=== PATIENT | male | born 1930 | race Caucasian/White ===

== ENCOUNTER 2018-02-08 06:10 | Inpatient (IN) ==
[2018-02-08] MEDS ORDERED: Iohexol 350 MG/ML 100 ML Vial (for Cath Lab) IVCONTRAST ONE (06:11)
[2018-02-08] MEDS ORDERED: Iohexol 350 MG/ML 50 ML Vial (for Cath Lab) IVCONTRAST ONE (06:11)
[2018-02-08] MEDS ORDERED: Sod Chloride 0.9% Inj 1,000 ML IV.CONT SCH (07:30)
[2018-02-08] MEDS ORDERED: Heparin/NS PF Inj 1,000 ML ONE ×2 (08:49→10:16)
[2018-02-08] MEDS ORDERED: fentaNYL Citrate Inj 100 MCG/2 ML Ampul ONE (08:55)
[2018-02-08] MEDS ORDERED: Heparin 10,000 UNITS/10 ML Vial (for IV use) ONE (09:53)
[2018-02-08] MEDS ORDERED: Lidocaine PF 1% Inj 30 ML Vial ONE (10:00)
[2018-02-08] MEDS ORDERED: Aspirin 325 MG Tablet ONE (11:27)
[2018-02-08] MEDS ORDERED: Morphine Sulfate Inj 2 MG/ML Vial IV.PUSH PRN (11:30)
[2018-02-08] MEDS ORDERED: Misc Info for Pharmacy OTHER STA (11:30)
[2018-02-08] MEDS ORDERED: oxyCODONE/Acetaminophen 10/325 Tablet PO PRN (11:30)
[2018-02-08] MEDS ORDERED: Acetaminophen 325 MG Tablet PO PRN (11:30)
--- NOTE | 2018-02-08 11:47 | CATHPROC ---
[employer] HIS Report Study Information Study Number Admission Scheduled Start Study Start [id number] Feb 08 2018 6:10AM 02/08/2018 Feb 08 2018 8:45AM [place] Service Electrophysiology Study Admit Source Facility Department Other [facility] Physician and Clinical Staff Initial Amilcar Yadav Ovens Supervisor Santosh Valdes,GUILLERMO Recorder Neyda Holloway,RT(R) (BS) Recorder Jaqueline Ayoub RN Scrub Myra London,RT(R) Scrub Student, R D INTERN/RT(R) Procedures Performed Procedure Location (Site) Vessel Name Coronary Angiograms SVG-RCA Right Coronary Coronary Angiograms SINGH SINGH Drug Eluting Inflatio Lft Main Ost Left Coronary Impella Fem Art (left) Femoral Art L Heart Cath Pacemaker Temp Fem Vein (left) Femoral Vein PTCA Fem Art (right) Femoral Art PTCA Lft Main Ost Left Coronary Wire insertion Fem Art (left) Femoral Art Wire insertion Fem Art (right) Femoral Art Equipment Time Orthopaedic Physician Assistant Description Size Mfg Part Number Used/Scraped PERCLOSE, PRO GLIDE CLOSER 09:57 [place] [employer] [place] [place] 6 [id number] *[id number] Used DEVICE PERCLOSE, PRO GLIDE CLOSER 09:57 [employer] [place] FR 6 [address] *[id number] Used DEVICE [id number] 10:15 ABIOMED PUMPSET, IMPELLA 2.5 2.5 Used 53 [id number] 09:56 JOHNSON BENAVIDES PACING CATHETER J CURVE FR 5 Used *[id number] TRANSDUCER, TRUWAVE [id number] 08:51 JOHNSON BENAVIDES * Used W/STOCKCOCK *[id number] CARDIOVASCULAR CATHETER, CORONARY CLASSIC DBEC-125 10:38 Used SYSTEMS INC. 1.25MM *[id number] CARDIOVASCULAR WIRE, VIPER ADVANCE [facility]-06185TS- 10:47 Used SYSTEMS INC. CORONARY FLP *[id number] 11:24 CARDIVA MEDICAL VASCADE, FR6 CLOSURE SYSTEM FR 6\7 Used *[id number] SHEATH, FR14 RB 30CM RCFW-14.0-38-30 10:11 COOK/DELFINO FR 14 Used (IMPELLA ) -RB 534-520T *[id number] 534-521T *[id number] 534-642T *[id number] 534-542T *[id number] PIGTAIL ANG. 145 INFINITI 534-652S CATHETER *1663684 [id number] *[id number] 734094 11:26 DAIG/[facility] MEDICAL ANGIOSEAL, FR6 VIP FR 6 Used *[id number] CATHETER, FR5 TRAILBLAZER SC-035-135 10:10 [employer] 135CM Used .035 *[id number] WIRE, AMPLATZ SUPER STIFF 10:11 Meditech .035 21661 *4903846 Used STRT [id number] 08:51 [employer] BLANKET,WARM AIR CCL * Used *8893555 [id number] 08:51 [employer] PACK, CCL CUSTOM * Used *[id number] [id number] 08:51 [employer] PACER PEN, SKIN DUAL W/ RULER * Used *[id number] BALLOON, 1.25 X 6MM SPRINTER [id number] 10:41 MEDTRONIC 6MM Used LEGEND OTW *6330695 [id number] 11:03 MEDTRONIC BALLOON, 3.5 X 12MM EUPHORA 12MM Used *2097775 BALLOON, 4.0 X 12MM NC [id number] 11:10 MEDTRONIC 12MM Used EUPHORA *6031309 [id number] 09:36 MEDTR[employer] IM DXTERITY CATHETER FR 5 Used *0746945 [id number] 11:06 MEDTRONIC STENT, 4.0 15MM ZEKE 4.0 15MM Used *6417336 IK4381 11:05 [employer] MEDICAL 30 ANA LUISA INDEFLATOR Used *4361649 PSI-6F- 09:56 [employer] MEDICAL SHEATH, FR6.5 PRELUDE 11CM FR 6.5 038ACT Used *9665350 PSI-6F- 09:58 [employer] MEDICAL SHEATH, FR6.5 PRELUDE 11CM FR 6.5 038ACT Used *9779209 [id number] 08:51 [employer] MEDICAL WIRE, 3MMJ .035 180CM 180CM Used *6895863 [id number] 09:36 [employer] MEDICAL WIRE, EXCHANGE 260CM 3MMJ 260CM Used *[id number] [id number] 08:51 NAMIC MANIFOLD, 4 PORT * Used *8414228 08:51 NYCOMED OMNIPAQUE, 350 MG, 150ML 150ML [id number] Used [id number] 08:51 TERUMO MEDICAL SHEATH, FR5 TERUMO (10CM) FR 5 Used *8823072 YFY174 10:19 TERUMO MEDICAL SHEATH, FR7 TERUMO (10CM) FR 7 Used *3311227 WIRE, RUNTHROUGH NS FLOPPY 25-1013 10:40 TERUMO MEDICAL 300CM Used .014 300CM *[id number] Equipment Model, Serial, Lot Number and Expiration Data Description Model Number Serial Number Lot Number Expiration Date CATHETER, CORONARY CLASSIC [id number] 06-03-2019 1.25MM CATHETER, FR5 TRAILBLAZER .035 [id number] 11-09-2020 IM DXTERITY CATHETER [id number] 02-13-2020 PERCLOSE, PRO GLIDE CLOSER [id number] 10-31-2018 DEVICE PERCLOSE, PRO GLIDE CLOSER [id number] 10-31-2018 DEVICE SHEATH, FR14 RB 30CM (IMPELLA [id number] 07-06-2020 ) WIRE, AMPLATZ SUPER STIFF STRT [id number] 09-29-2019 History: Current Medications Medication Dosage/Unit Route Frequency Last Date/Time Taken Statins (any) History: Allergies Allergy Reaction No Known Allergies History: Risk Factors Family History of Hypertension Dyslipidemia Previous UT Previous Heart Failure Premature CAD Yes Yes No No No Prior Valve Prior PCI Prior CABG Prior CABGDate Surgery No No Yes 02/01/1998 Cerebrovascular Peripheral Artery Chronic Lung On Dialysis Diabetes Diabetes Therapy Disease Disease Disease No No No No Yes Oral History: Symptoms/Diagnosis Selection Items Chest pain History: Stress Tests Stress or Imaging Studies Performed No History: Other Current Smoker Method Quit Packs a Day Years Used Pack Years No Cigarettes 60 Years Ago 1 20 20 Labs Hgb (g/dl) Hct (%) WBC (l/cumm) Platelets (thousands) 11.60-17.00 35.00-51.00 4.00-11.00 150.00-450.00 13.8 42 7.9 204 Glucose (mg/dl) BUN (mg/dl) Creatinine (mg/dl) BUN:Creatinine (1:x) 74.00-106.00 7.00-18.00 0.50-1.30 10.00-20.00 175 24 1.1 21.8 Na (meq/l) K (meq/l) 136.00-145.00 3.50-5.10 139 4.6 INR (PTT:PT) 0.90-1.10 1.1 CPK-MB (ng/ML) 0.50-3.60 Not Drawn Medication Medication Total Dose (Bolus/Oral) Medication Total Dosage/Unit 1% XYLOCAINE 40 mL ASPIRIN 325 mg FENTANYL 100 mcg HEPARIN 8000 units PLAVIX 600 mg VERSED 4 mg Medications (Bolus/Oral) Medication Time Given Dosage/Unit Administered By Reason VERSED 02/08/2018 9:16:16 AM 0.5 mg Santosh Valdes 0.5 mg VERSED given in lab by Santosh Valdes RN via Peripheral IV. FENTANYL 02/08/2018 9:17:26 AM 25 mcg Santosh Valdes 25 mcg FENTANYL given in lab by Santosh aVldes RN via Peripheral IV. 1% XYLOCAINE 02/08/2018 9:20:03 AM 20 mL Amilcar Brewster 20 mL 1% XYLOCAINE given in lab by Amilcar Brewster in Right Groin via Subcutaneous. VERSED 02/08/2018 9:45:44 AM 0.5 mg Santosh Valdes 0.5 mg VERSED given in lab by Santosh Valdes RN via Peripheral IV. FENTANYL 02/08/2018 9:46:10 AM 25 mcg Santosh Valdes 25 mcg FENTANYL given in lab by Santosh Valdes RN via Peripheral IV. 1% XYLOCAINE 02/08/2018 9:56:37 AM 20 mL Amilcar Brewster 20 mL 1% XYLOCAINE given in lab by Amilcar Brewster in Left Groin via Subcutaneous. VERSED 02/08/2018 10:00:12 AM 1 mg Santosh Valdes 1 mg VERSED given in lab by Santosh Valdse RN via Peripheral IV. FENTANYL 02/08/2018 10:01:44 AM 25 mcg Santosh Valdes 25 mcg FENTANYL given in lab by Santosh Valdes RN via Peripheral IV. HEPARIN 02/08/2018 10:08:20 AM 6000 units Jaqueline Ayoub 6000 units HEPARIN given in lab by Jaqueline Ayoub RN via Peripheral IV. VERSED 02/08/2018 10:27:34 AM 1 mg Santosh Valdes 1 mg VERSED given in lab by Santosh Valdes RN via Peripheral IV. FENTANYL 02/08/2018 10:28:47 AM 25 mcg Santosh Valdes 25 mcg FENTANYL given in lab by Santosh Valdes RN via Peripheral IV. HEPARIN 02/08/2018 10:36:39 AM 2000 units Jaqueline Ayoub 2000 units HEPARIN given in lab by Jaqueline Ayoub RN via Peripheral IV. VERSED 02/08/2018 11:16:30 AM 1 mg Santosh Valdes 1 mg VERSED given in lab by Santosh Valdes RN via Peripheral IV. PLAVIX 02/08/2018 11:30:01 AM 600 mg Santosh Valdes 600 mg PLAVIX given in lab by Santosh Valdes RN via Oral. ASPIRIN 02/08/2018 11:31:18 AM 325 mg Santosh Valdes 325 mg ASPIRIN given in lab by Santosh Valdes RN via Oral. Medication (Drip) Medication Time Given Dosage/Unit Concentration/Unit Diluent (ml) Solution IV Solutions 02/08/2018 8:45:32 AM 0 mL (IV) 500 NaCl .9 IV Solutions given in lab by Santosh Valdes RN in Left Antecubital via Peripheral IV. Pump/Drip Flow = 30 ml/hr using NaCl .9. Initial Case Assessment Cardiovascular HR Rhythm NIBP Chest Pain 65 reg 180/87 0 Edema Present Skin color Skin None Normal Warm Dry Circulatory - Right Pulses Dorsalis Pedis Femoral 2 2 Scale (0,1,2,3,4,d) Circulatory - Left Pulses Dorsalis Pedis Femoral 2 2 Scale (0,1,2,3,4,d) Circulatory - Lower Extremities Color Lower Right Color Lower Left Normal Normal Neurological State Oriented to time-place- Alert Moves all extremities person Respiration - General Respiration Rate SpO2 (%) (B/min) 8 98 Chronological Log Time Study Chronological Log 8:42:09 Patient arrived via Bed. 8:42:09 Patient Name, D.O.B, / Armband Verified By R.N. 8:42:12 Consent signed by the physician and the patient and verified by the [employer] staff. 8:45:16 Pre-op and post- op instructions given; patient acknowledges understanding of instructions. 8:45:20 Presedation assessment performed by [employer] RN. 8:45:22 Patient has been NPO for More than 6Hrs. 8:45:26 Skin Breakdown none reported or noted 8:45:30 Patient Warmer Placed on the Table. 8:45:31 Gokul Prominences Protected 8:45:31 A # 20 IV was noted in the Antecubital (left). Grade = 0 IV Solutions given in lab by Santosh Valdes, RN in Left Antecubital via Peripheral IV. Pump/Drip Flow = 30 ml/hr using 8:45:32 NaCl .9. 8:45:33 History and physical on the chart or being dictated. Assessment: Initial Case, HR=65 BPM, Rhythm=reg, SHSV=985/87 mmhg, Chest Pain=0, Edema=None, Col or=Normal, Skin = Warm, Dry Right Pulses: Serg Ped=2, Femoral=2 Left Pulses: Serg Ped=2, Femoral=2 8:45:33 Lower Right Extremities: Color=Normal Lower Left Extremities: Color=Normal Neurological: State=Alert, Ox3, DAVID Respiration: Resp=8 B/min, SpO2=98 % Vitals capture started with the following parameters, Patient=Adult, Interval=5 min, Initial Pre vibic=033 mmHg, 8:51:12 Deflation Rate=5 mmHg, Cuff placed on Left Arm 8:52:31 HR=63 bpm, QXCB=441/87 mmhg, Resp=10 B/min, Pain=0, Chaitanya=10, Khan=2 8:56:59 HR=60 bpm, HXNO=454/82 mmhg, SpO2=98.0 %, Resp=9 B/min, Pain=0, Chaitanya=10, Khan=2 9:00:40 Bilateral groins prepped with 2% chlorhexidine, and draped after a 3 minute waiting time. 9:01:58 HR=61 bpm, WLPC=224/84 mmhg, SpO2=98.0 %, Resp=10 B/min, Pain=0, Chaitanya=10, Khan=2 9:04:36 MD paged 9:05:34 MD responded 9:06:47 Pressure channel 1 zeroed. 9:07:03 HR=61 bpm, XLNV=847/80 mmhg, Resp=9 B/min, Pain=0, Chaitanya=10, Khan=2 9:09:32 Reference ECG taken 9:12:00 HR=58 bpm, ICXO=346/77 mmhg, SpO2=98.0 %, Resp=9 B/min, Pain=0, Chaitanya=10, Khan=2 Time Out. Correct patient, correct procedure, correct physician, labs, allergies, and equipment verified with medical laboratory manager 9:16:13 team present. Fire risk assesment completed (see hard stop sheet for coding). Time Out Concu rred by MD and individual staff in procedure. 9:16:16 0.5 mg VERSED given in lab by Santosh Valdes, RN via Peripheral IV. 9:16:22 Case Start 9:16:59 HR=61 bpm, JXKP=573/85 mmhg, SpO2=96.0 %, Resp=17 B/min, Pain=0, Chaitanya=10, Khan=2 9:17:26 25 mcg FENTANYL given in lab by Santosh Valdes, RN via Peripheral IV. 9:20:03 20 mL 1% XYLOCAINE given in lab by Amilcar Brewster in Right Groin via Subcutaneous. 9:20:49 Access site was Right Femoral Artery. 9:21:29 A SHEATH, FR5 TERUMO (10CM) FR 5 was advanced into the Fem Art (right) using the Percutaneou s technique. A JR 4.0 INFINITI CATHETER FR 5 was advanced over a wire. OMNIPAQUE, 350 MG, 150ML 150ML was use d for 9:21:34 injections. 9:22:02 HR=58 bpm, HPLW=268/80 mmhg, SpO2=95.0 %, Resp=16 B/min, Pain=0, Chaitanya=10, Khan=2 After removing the current catheter a MPA-2 INFINITI CATHETER FR 5 was advanced over a WIRE, 3MM J .035 180CM 9:25:11 180CM. 9:26:59 HR=61 bpm, ABYB=366/82 mmhg, SpO2=94.0 %, Resp=9 B/min, Pain=0, Chaitanya=10, Khan=2 9:27:44 The SVG-RCA was injected and visualized at various angles. OMNIPAQUE, 350 MG, 150ML 150ML us ed. After removing the current catheter a JL 4.0 INFINITI CATHETER FR 5 was advanced over a WIRE, 3M MJ .035 180CM 9:28:09 180CM. 9:29:36 Pressure channel 1 zeroed. After removing the current catheter a JL 5.0 INFINITI CATHETER FR 5 was advanced over a WIRE, 3M MJ .035 180CM 9:31:05 180CM. 9:32:00 HR=60 bpm, ZQOF=498/73 mmhg, SpO2=95.0 %, Resp=10 B/min, Pain=0, Chaitanya=10, Khan=2 After removing the current catheter a JR 4.0 INFINITI CATHETER FR 5 was advanced over a WIRE, 3M MJ .035 180CM 9:34:58 180CM. 9:35:41 A WIRE, EXCHANGE 260CM 3MMJ 260CM was inserted via Fem Art (right). After removing the current catheter a IM DXTERITY CATHETER FR 5 was advanced over a WIRE, EXCHAN GE 260CM 9:36:04 3MMJ 260CM. 9:36:59 HR=65 bpm, GGEG=306/80 mmhg, SpO2=95.0 %, Resp=10 B/min, Pain=0, Chaitanya=10, Khan=2 The SINGH was injected and visualized at various angles. OMNIPAQUE, 350 MG, 150ML 150ML used. Do es not connect 9:38:44 to coronary 9:41:02 Catheter was removed 9:42:01 HR=65 bpm, WTUI=845/70 mmhg, SpO2=98.0 %, Resp=6 B/min, Pain=0, Chaitanya=10, Khan=2 9:45:20 MD discussing intervention options with patients family. 9:45:44 0.5 mg VERSED given in lab by Santosh Valdes RN via Peripheral IV. 9:46:10 25 mcg FENTANYL given in lab by Santosh Valdes RN via Peripheral IV. 9:47:00 HR=61 bpm, PSAV=711/75 mmhg, SpO2=97.0 %, Resp=8 B/min, Pain=0, Chaitanya=10, Khan=2 9:51:59 HR=63 bpm, KAKJ=207/74 mmhg, SpO2=92.0 %, Resp=12 B/min, Pain=0, Chaitanya=10, Khan=2 Recorded Pressure: Ao, HR=69, Condition=Condition 1 9:53:41 (Aorta) Ao 169/68/106 9:56:37 20 mL 1% XYLOCAINE given in lab by Amilcar Brewster in Left Groin via Subcutaneous. 9:56:58 HR=65 bpm, VRIT=575/79 mmhg, SpO2=94.0 %, Resp=17 B/min, Pain=0, Chaitanya=10, Khan=2 9:57:49 Access site was Left Femoral Artery. 9:58:22 A SHEATH, FR6.5 PRELUDE 11CM FR 6.5 was advanced into the Fem Art (left) using the Percutane ous technique. 9:59:49 Access site was Left Femoral Vein. 10:00:12 1 mg VERSED given in lab by Santosh Valdes RN via Peripheral IV. 10:01:44 25 mcg FENTANYL given in lab by Santosh Valdes RN via Peripheral IV. 10:02:01 HR=69 bpm, RBPC=648/72 mmhg, SpO2=95.0 %, Resp=26 B/min, Pain=0, Chaitanya=10, Khan=2 10:03:21 PERCLOSE, PRO GLIDE CLOSER DEVICE FR 6 placement in the Fem Art (left) 10:03:27 PERCLOSE, PRO GLIDE CLOSER DEVICE FR 6 placement in the Fem Art (left) 10:07:02 HR=62 bpm, RISV=832/70 mmhg, SpO2=91.0 %, Resp=18 B/min, Pain=0, Chaitanya=10, Khan=2 10:08:20 6000 units HEPARIN given in lab by Jaqueline Ayoub RN via Peripheral IV. A CATHETER, FR5 TRAILBLAZER .035 135CM was advanced over a wire. OMNIPAQUE, 350 MG, 150ML 150ML was 10:10:40 used for injections. 10:11:55 HR=63 bpm, RERL=347/81 mmhg, SpO2=91.0 %, Resp=12 B/min, Pain=0, Chaitanya=10, Khan=2 10:12:16 Catheter was removed A SHEATH, FR14 RB 30CM (IMPELLA ) FR 14 was exchanged in the Fem Art (left). This was necessary in order to 10:12:43 accomodate a larger catheter. 10:16:58 HR=60 bpm, PWUH=401/83 mmhg, SpO2=98.0 %, Resp=27 B/min, Pain=0, Chaitanya=10, Khan=2 10:17:52 Activated Clotting Time Drawn A SHEATH, FR7 TERUMO (10CM) FR 7 was exchanged in the Fem Vein (left). This was necessary in or johann to 10:18:43 accomodate a larger catheter. 10:20:35 A catheter was advanced to the right ventricle. Rate = 80, Output = 5, MA = 3. 10:21:57 HR=81 bpm, KWKA=416/87 mmhg, SpO2=98.0 %, Resp=17 B/min, Pain=0, Chaitanya=10, Khan=2 10:22:50 ACT (Normal Range 90-180) = 227 A PIGTAIL ANG. 145 INFINITI CATHETER FR 6 was advanced over a wire. OMNIPAQUE, 350 MG, 150ML 15 0ML was 10:24:20 used for injections. Recorded Pressure: LV, HR=62, Condition=Condition 1 10:25:37 (Left Ventricle) LV 178/8/18 10:27:34 1 mg VERSED given in lab by aSntosh Valdes, GUILLERMO via Peripheral IV. 10:27:43 HR=67 bpm, XYAG=757/72 mmhg, SpO2=99.0 %, Resp=12 B/min, Pain=0, Chaitanya=10, Khan=2 10:28:47 25 mcg FENTANYL given in lab by Santosh Valdes, RN via Peripheral IV. After removing the current catheter a MPA-2 INFINITI CATHETER FR 6 was advanced over a WIRE, EX CHANGE 260CM 10:29:42 3MMJ 260CM. 10:32:03 HR=65 bpm, IAAJ=299/74 mmhg, SpO2=98.0 %, Resp=11 B/min, Pain=0, Chaitanya=10, Khan=2 An PUMPSET, IMPELLA 2.5 2.5 was advanced into the left ventricle . Proper placement was confir med under 10:32:38 fluoroscopy and the catheter was sutured in place. 10:36:39 2000 units HEPARIN given in lab by Jaqueline Ayoub, GUILLERMO via Peripheral IV. 10:37:02 HR=66 bpm, VMFT=938/62 mmhg, SpO2=97.0 %, Resp=13 B/min, Pain=0, Chaitanya=10, Khan=2 A XBLAD 4.0 GUIDE CATHETER FR 6 was advanced over a wire. OMNIPAQUE, 350 MG, 150ML 150ML was us ed for 10:37:40 injections. 10:40:59 A WIRE, RUNTHROUGH NS FLOPPY .014 300CM 300CM was inserted via Fem Art (right). 10:42:28 HR=63 bpm, MAGZ=230/74 mmhg, SpO2=98.0 %, Resp=10 B/min, Pain=0, Chaitanya=10, Khan=2 10:44:22 Interventional wire has crossed the lesion A BALLOON, 1.25 X 6MM SPRINTER LEGEND OTW 6MM was inserted over WIRE, RUNTHROUGH NS FLOPPY .014 10:46:15 300CM 300CM via the Fem Art (right). 10:46:53 The previous wire was exchanged for a WIRE, VIPER ADVANCE CORONARY. 10:46:58 HR=69 bpm, YLMC=309/80 mmhg, SpO2=98.0 %, Resp=12 B/min, Pain=0, Chaitanya=10, Khan=2 10:47:48 Balloon Removed. 10:48:20 ACT (Normal Range 90-180) = 246 10:49:39 An CATHETER, CORONARY CLASSIC 1.25MM catheter was inserted into the Fem Art (right). 10:51:57 HR=66 bpm, JGFF=672/84 mmhg, SpO2=99.0 %, Resp=20 B/min, Pain=0, Chaitanya=10, Khan=2 10:56:18 CSI in progress 10:57:02 HR=67 bpm, RWVE=354/81 mmhg, SpO2=98.0 %, Resp=11 B/min, Pain=0, Chaitanya=10, Khan=2 10:57:28 CSI in progress 10:58:39 CSI in progress 11:00:14 CSI Catheter was removed 11:02:42 HR=70 bpm, LRYQ=445/93 mmhg, SpO2=98.0 %, Resp=10 B/min, Pain=0, Chaitanya=10, Khan=2 A BALLOON, 3.5 X 12MM EUPHORA 12MM was inserted over WIRE, VIPER ADVANCE CORONARY via the Fem A rt 11:03:56 (right). A BALLOON, 3.5 X 12MM EUPHORA 12MM over a WIRE, VIPER ADVANCE CORONARY in the Fem Art (right) w as 11:04:55 inflated using a 30 ANA LUISA INDEFLATOR at 14 ana luisa for 15 sec. 11:06:20 Balloon Removed 11:07:08 HR=71 bpm, FXGR=143/81 mmhg, SpO2=96.0 %, Resp=14 B/min, Pain=0, Chaitanya=10, Khan=2 A STENT, 4.0 15MM ZEKE 4.0 15MM was advanced through a XBLAD 4.0 GUIDE CATHETER FR 6 over a WIR E, VIPER 11:07:41 ADVANCE CORONARY. A STENT, 4.0 15MM ZEEK 4.0 15MM was deployed using a 30 ANA LUISA INDEFLATOR at 18 atmospheres for 12 seconds in 11:08:42 the Lft Main Ost. 11:09:57 Delivery device removed A BALLOON, 4.0 X 12MM NC EUPHORA 12MM was inserted over WIRE, VIPER ADVANCE CORONARY via the m Art 11:11:23 (right). A BALLOON, 4.0 X 12MM NC EUPHORA 12MM over a WIRE, VIPER ADVANCE CORONARY in the Lft Main Ost w as 11:11:55 inflated using a 30 ANA LUISA INDEFLATOR at 22 ana luisa for 23 sec. 11:12:05 HR=68 bpm, TSWM=668/82 mmhg, SpO2=98.0 %, Resp=11 B/min, Pain=0, Chaitanya=10, Khan=2 A BALLOON, 4.0 X 12MM NC EUPHORA 12MM over a WIRE, VIPER ADVANCE CORONARY in the Lft Main Ost w as 11:12:39 inflated using a 30 ANA LUISA INDEFLATOR at 20 ana luisa for 10 sec. 11:14:35 Balloon Removed 11:15:04 Catheter was removed 11:15:30 Temp pacer off 11:15:46 Impella off 11:16:05 Impella removed 11:16:30 1 mg VERSED given in lab by Santosh Valdes, RN via Peripheral IV. 11:16:44 A WIRE, 3MMJ .035 180CM 180CM was inserted via Fem Art (left). 11:17:07 HR=69 bpm, KJUF=450/91 mmhg, SpO2=97.0 %, Resp=7 B/min, Pain=0, Chaitanya=10, Khan=2 11:22:08 HR=65 bpm, OPJG=382/96 mmhg, SpO2=98.0 %, Resp=14 B/min, Pain=0, Chaitanya=10, Khan=2 11:23:24 VASCADE, FR6 CLOSURE SYSTEM FR 6\7 placement in the Fem Vein (left) 11:25:22 ANGIOSEAL, FR6 VIP FR 6 placement in the Fem Art (right) 11:25:41 Case End (Physician broke scrub) 11:27:09 HR=66 bpm, YEQA=366/91 mmhg, SpO2=97.0 %, Resp=23 B/min, Pain=0, Chaitanya=10, Khan=2 11:30:01 600 mg PLAVIX given in lab by Santosh Valdes, RN via Oral. 11:31:18 325 mg ASPIRIN given in lab by Santosh Valdes, GUILLERMO via Oral. 11:32:04 HR=67 bpm, JPXB=777/130 mmhg, SpO2=97.0 %, Pain=0, Chaitanya=10, Khan=2 11:32:16 Catheter(s) removed without difficulty 11:32:19 Sterile dressing applied to site 11:32:20 Sterile dressing applied to site 11:32:21 No case complications noted. 11:32:23 Bedside Report will be given. 11:32:24 Implantable Device card placed in patient's chart. 11:32:27 A Left Heart Cath was performed. 11:37:12 Patient moved to [facility] End Study - Contrast Media Used In Study Contrast Total Opened (mL) Total Used (mL) Total Wasted (mL) Omnipaque 150 150 0 End Study - Maximum Contrast Load Max Contrast Load (mL) 372.7 End Study - Radiation Exposure Fluoro Time (minutes) 22.0 End Study - Sheaths Sheaths Pulled By Sheath Hold Time (min) Minor, Amilcar End Study - Patient Disposition Complications Transferred To Interventional Outcome No [employer] Holding successful
--- NOTE | 2018-02-08 11:49 | P.PCN ---
Date of procedure: 02/08/18 Pre-op diagnosis: Unstable angina Procedure: dampener operator: Deangelo Brewster md Procedure performed: 1. Left heart catheterization 2. Fluoroscopy interpretation 3. Coronary angiography 4. Coronary bypass graft angiography 5. Temporary transvenous pacemaker placement 6. Percutaneous coronary intervention with drug-eluting stent to the left main coronary artery 7. Orbital rotational atherectomy of the left main coronary artery 8. Insertion of Impella 2.5 pump CPT code 83359 9. Insertion of external heart assist system into heart, percutaneous approach 10. Removal of external heart assist system from heart, percutaneous approach 11. Assistance with cardiac output using impeller pump, continuous Methods: Risks, benefits, and alternatives were discussed with the patient. Patient understood and consented to the procedure. Patient was brought into the cardiac catheterization lab and placed in the catheterization table. Bilateral groins were prepped and draped in a sterile fashion. Right groin was anesthetized with 2% lidocaine. Right common femoral artery was cannulated and a 5 Serbian 11 cm sheath was placed without difficulty. Left heart catheterization: A pigtail catheter was advanced into the left ventricle. Intra-ventricular hemodynamics measured at 178 over 8 mmHg with a left ventricular end-diastolic pressure of 18 mmHg. Coronary angiography: 1. Left main coronary artery has a proximal 95% eccentric, heavily calcified stenosis. The distal left main coronary artery also has an eccentric 30% calcific plaque. 2. Left anterior descending coronary artery has minor luminal irregularities. There is a large diagonal branch with minor luminal irregularities 3. The left circumflex coronary artery gives rise to first obtuse marginal branch with minor luminal irregularities. 4. The right coronary artery is occluded proximally with heavy calcium present. Coronary artery bypass graft angiography: The saphenous vein graft to the right coronary artery was selectively engaged with a multipurpose catheter. The saphenous vein graft is widely patent. The posterior descending and posterolateral branches are widely patent. The right coronary back fills to the proximal occlusion. The right coronary is dominant. The left subclavian and left internal mammary arteries were selectively engaged. Left internal mammary artery was not utilized as a graft conduit. Temporary transvenous pacemaker placement: A 7 Serbian 11 cm sheath was placed in the left common femoral vein without difficulty. A 5 Serbian balloontipped catheter was advanced to the right ventricular apex. Appropriate pacing and capture was confirmed and utilized throughout the procedure. Insertion of percutaneous left ventricular assist device, Impella 2.5 pump: Access was obtained in the left common femoral artery under fluoroscopic guidance. A 6 Serbian sheath was placed without difficulty. 2 Perclose devices were deployed in a pre-close manner. A 14 Serbian dilator was advanced over a 260 cm Amplatz superstiff wire. A 14 Serbian 30 cm sheath was advanced over the Amplatz wire into the distal aorta. Long sheath was utilized given heavy calcification in the iliac arteries. A 6 Serbian pigtail catheter was advanced into the left ventricle without difficulty. Standard 260 cm J-wire was then advanced into the left ventricular apex and a multipurpose catheter advanced into the left ventricle and the J-wire removed. The 0.018 inch 260 cm Impella wire was advanced into the apex of the left ventricle and the multipurpose catheter removed. The 2.5 left ventricular Impella pump was advanced over the wire into the left ventricle with appropriate position across the aortic valve. The wire was removed. The pump was initiated at P6 with appropriate motor function and good augmentation of blood pressure. The device was left in the place throughout the entire procedure. A completion of the procedure the device was removed. Percutaneous coronary intervention: Left main coronary artery was selectively engaged with a 6 Serbian XB LAD 4.0 guide catheter. A 0.014 inch 300 cm Terumo run through wire was advanced down to the distal left anterior descending coronary artery. A 1.25 x 6 mm over the wire before balloon was advanced to the left anterior descending coronary artery distally. The wire was removed. A 0.009 inch 335 cm Viper wire was then advanced down through the [id number] balloon into the left anterior descending coronary artery and the balloon removed. A 1.25 mm CSI atherectomy catheter was then prepped and advanced over the wire orbital rotational atherectomy was performed on 2 sequential passes at 80,000 revolutions per minute followed by one pass at 120,000 revolutions per minute. Patient maintained good electrical and hemodynamic stability during this portion of the procedure but did require temporary transvenous pacemaker. A 4.0 x 12 mm Rx Euphora for balloon was advanced into the proximal segment of the left main coronary artery and deployed to 14 giovanna. Repeat angiography still shows severe residual stenosis. A 4.0 x 15 mm Rx resolute Rodo stent was advanced to the proximal left anterior descending coronary artery covering the ostium but not extending into the bifurcation, and deployed. The stent was then postdilated on 2 sequential inflations with a 4.0 x 12 mm Rx NC Euphora balloon in the midsegment of the stent and flaring the ostium. Repeat angiography showed no significant residual stenosis, no dissection, and no perforation. There was MARISA-3 flow. Heparin was administered through the the entire procedure to maintain appropriate anticoagulation. Plavix was administered at the completion of procedure. 2 Perclose devices were deployed in the left common femoral artery with good hemostasis. A 7 Serbian Vascade device was deployed in the left femoral vein with good hemostasis. A 6 Serbian Angio-Seal was deployed in the right common femoral artery with good hemostasis. The temporary transvenous pacemaker had been removed. Conclusions: 1. Severe, heavily calcified, proximal left main coronary artery stenosis 2. Successful utilization of temporary transvenous pacemaker 3. Successful utilization of left ventricular percutaneous assist device, Impella 2.5 pump 4. Successful orbital rotation arthrectomy, balloon angioplasty, and drug- eluting stent placement to the left anterior descending coronary artery Plan: Patient will be monitored closely for any postprocedural complications. Hopefully this will translate well to symptomatic improvement. We will initiate patient on aspirin, Plavix, beta-melodie, statin, and angiotensin- converting enzyme inhibitor. We will check a P2 Y 12 assay to ensure appropriate platelet inhibition given the placement in the left main.
[2018-02-08] MEDS ORDERED: hydrALAZINE 50 MG Tablet PO PRN (12:36)
[2018-02-08 17:35] LABS: Baso % (Auto) 0.5 % (0.0-2.0); Eos # (Auto) 0.4 th/mm3 (0.0-0.4); Eos % (Auto) 4.3 % (0.0-4.0); Hematocrit 41.9 % (39.0-51.0); Hemoglobin 14.5 gm/dL (13.0-17.0); Lymph % (Auto) 20.6 % (9.0-44.0); Mean Corpuscular HGB Conc 34.6 % (32.0-36.0); Mean Corpuscular Volume 92.6 fL (80.0-100.0); Mean Platelet Volume 8.8 fL (7.0-11.0); Mono # (Auto) 1.2 th/mm3 (0.0-0.9); Mono % (Auto) 11.8 % (0.0-8.0); Neut # (Auto) 6.1 th/mm3 (1.8-7.7); Neut % (Auto) 62.8 % (16.0-70.0); Platelet Count 155 th/mm3 (150-450); Red Blood Count 4.53 mil/mm3 (4.50-5.90); Red Cell Distribution Width 14.2 % (11.6-17.2); White Blood Count 9.8 th/mm3 (4.0-11.0)
[2018-02-08] MEDS ORDERED: Temazepam 15 MG Capsule PO PRN (21:00)
[2018-02-09 00:10] VITALS: RESP 16
[2018-02-09] MEDS: Metoprolol Tartrate 50 MG Tablet PO SCH ×2 (01:02→09:02)
[2018-02-09 04:13] VITALS: BP 110/62; TEMP 98.2; O2SAT 99
[2018-02-09 05:25] VITALS: PULSE 72
[2018-02-09] MEDS ORDERED: Levothyroxine 88 MCG Tablet PO SCH (06:00)
[2018-02-09 07:13] LABS: Calcium 8.4 mg/dL (8.5-10.1); Carbon Dioxide 26.7 meq/L (21.0-32.0); Potassium 3.9 meq/L (3.5-5.1)
[2018-02-09 07:16] LABS: Chol/HDL Ratio 2.56 Ratio; HDL Cholesterol 33.9 mg/dL (40.0-60.0)
--- NOTE | 2018-02-09 08:56 | P.DS ---
<Hamilton Isaac - Last Filed: 02/09/18 09:03> Date of admission: 02/08/18 Primary care physician: Davion Farley MD Brief History from admission: 87-year-old male with a past medical history of CAD who was admitted 02/08 for elective left heart catheterization. Patient update on day of discharge: Patient is doing well today. He denies any chest pain or shortness of breath. He denies any issues with left groin access site. DS: Medications - Discharge Medications Prescriptions: clopidogrel [Plavix] 75 mg PO DAILY #30 tab DS: Summary Hospital Course: 87-year-old male who was admitted electively for left heart catheterization on 02/08 and underwent complex revascularization with PCI to left main. The patient underwent unremarkable periprocedural course. Plavix added to current cardiac medical regimen. - Time Spent with Patient Total time spent providing and/or coordinating discharge services: Greater than 30 minutes Exam Vital signs: Vital Signs 02/08/18 12:00 02/08/18 15:00 02/08/18 20:00 Temperature 97 F L 97.3 F L 98.2 F Pulse Rate 60 52 L 66 Respiratory Rate 16 16 18 Blood Pressure 189/102 H 154/72 H 90/44 L Pulse Oximetry 99 95 96 02/08/18 23:58 02/09/18 00:13 02/09/18 01:13 Temperature 98.4 F Pulse Rate 75 80 70 Respiratory Rate 16 Blood Pressure 125/46 L Pulse Oximetry 97 02/09/18 02:00 02/09/18 03:00 02/09/18 04:00 Temperature 98.2 F Pulse Rate 68 76 76 Respiratory Rate 16 Blood Pressure 110/62 Pulse Oximetry 99 02/09/18 05:00 02/09/18 06:00 Temperature Pulse Rate 72 72 Respiratory Rate Blood Pressure Pulse Oximetry Intake & Output 02/08/18 02/09/18 02/09/18 18:59 06:59 18:59 Intake Total 1025 / 1025 480 / 480 Output Total 620 / 620 550 / 550 Balance 405 / 405 -70 / -70 Weight 181 lb 10.574 oz 178 lb 12.718 oz Intake: Oral 1025 / 1025 480 / 480 Output: Urine 620 / 620 550 / 550 Other: Date of Last Bowel Movement 02/08/18 # Bowel Movements 0 0 Weight On Admission 181 lb 10.574 oz Narrative: GENERAL: Well-developed well-nourished. In no acute distress. NECK: No carotid bruits. No JVD. CARDIOVASCULAR: Regular rate and rhythm. No murmur appreciated. RESPIRATORY: No accessory muscle use. Clear to auscultation. Breath sounds equal bilaterally. MUSCULOSKELETAL: No clubbing or cyanosis. No edema. Left groin access site with minimal ecchymosis, no swelling or tenderness with intact femoral pulse. NEUROLOGICAL: Awake and alert. Normal speech. Results Labs on day of discharge: Labs from last 24 hours 02/09/18 02/09/18 02/08/18 05:05 05:05 22:50 WBC RBC Hgb Hct MCV MCH MCHC RDW Plt Count MPV Neut % (Auto) Lymph % (Auto) [place] % (Auto) Eos % (Auto) Baso % (Auto) Neut # (Auto) Lymph # (Auto) [place] # (Auto) Eos # (Auto) Baso # (Auto) WBC Differential Differential Comment Hematology Comments Plt Funct P2Y12 Units 163 L Sodium 139 Potassium 3.9 Chloride 104 Carbon Dioxide 26.7 Anion Gap 8 BUN 22 H Creatinine 1.07 Estimated GFR 65 L POC Glucose 230 H Random Glucose 187 H Calcium 8.4 L Total Creatine Kinase 56 Triglycerides 99 Cholesterol 87 L LDL Cholesterol, Calc 33 HDL Cholesterol 33.9 L Cholesterol/HDL Ratio 2.56 02/08/18 16:39 WBC 9.8 RBC 4.53 Hgb 14.5 Hct 41.9 MCV 92.6 MCH 32.0 MCHC 34.6 RDW 14.2 Plt Count 155 MPV 8.8 Neut % (Auto) 62.8 Lymph % (Auto) 20.6 [place] % (Auto) 11.8 H Eos % (Auto) 4.3 H Baso % (Auto) 0.5 Neut # (Auto) 6.1 Lymph # (Auto) 2.0 [place] # (Auto) 1.2 H Eos # (Auto) 0.4 Baso # (Auto) 0.0 WBC Differential . Differential Comment Auto diff final Hematology Comments Plt Funct P2Y12 Units Sodium Potassium Chloride Carbon Dioxide Anion Gap BUN Creatinine Estimated GFR POC Glucose Random Glucose Calcium Total Creatine Kinase Triglycerides Cholesterol LDL Cholesterol, Calc HDL Cholesterol Cholesterol/HDL Ratio <Amilcar Brewster - Last Filed: 02/09/18 11:52> Primary care physician: Davion Farley MD DS: Summary - Time Spent with Patient Total time spent providing and/or coordinating discharge services: Exam Vital signs: Vital Signs 02/08/18 12:00 02/08/18 15:00 02/08/18 20:00 Temperature 97 F L 97.3 F L 98.2 F Pulse Rate 60 52 L 66 Respiratory Rate 16 16 18 Blood Pressure 189/102 H 154/72 H 90/44 L Pulse Oximetry 99 95 96 02/08/18 23:58 02/09/18 00:13 02/09/18 01:13 Temperature 98.4 F Pulse Rate 75 80 70 Respiratory Rate 16 Blood Pressure 125/46 L Pulse Oximetry 97 02/09/18 02:00 02/09/18 03:00 02/09/18 04:00 Temperature 98.2 F Pulse Rate 68 76 76 Respiratory Rate 16 Blood Pressure 110/62 Pulse Oximetry 99 02/09/18 05:00 02/09/18 06:00 Temperature Pulse Rate 72 72 Respiratory Rate Blood Pressure Pulse Oximetry Intake & Output 02/08/18 02/09/18 02/09/18 18:59 06:59 18:59 Intake Total 1025 / 1025 480 / 480 Output Total 620 / 620 550 / 550 Balance 405 / 405 -70 / -70 Weight 82.4 kg 81.1 kg Intake: Oral 1025 / 1025 480 / 480 Output: Urine 620 / 620 550 / 550 Other: Date of Last Bowel Movement 02/08/18 02/08/18 # Bowel Movements 0 0 Weight On Admission 82.4 kg Results Procedures completed during hospitalization: [facility] Labs on day of discharge: Labs from last 24 hours 02/09/18 02/09/18 02/08/18 05:05 05:05 22:50 WBC RBC Hgb Hct MCV MCH MCHC RDW Plt Count MPV Neut % (Auto) Lymph % (Auto) [place] % (Auto) Eos % (Auto) Baso % (Auto) Neut # (Auto) Lymph # (Auto) [place] # (Auto) Eos # (Auto) Baso # (Auto) WBC Differential Differential Comment Hematology Comments Plt Funct P2Y12 Units 163 L Sodium 139 Potassium 3.9 Chloride 104 Carbon Dioxide 26.7 Anion Gap 8 BUN 22 H Creatinine 1.07 Estimated GFR 65 L POC Glucose 230 H Random Glucose 187 H Calcium 8.4 L Total Creatine Kinase 56 Triglycerides 99 Cholesterol 87 L LDL Cholesterol, Calc 33 HDL Cholesterol 33.9 L Cholesterol/HDL Ratio 2.56 02/08/18 16:39 WBC 9.8 RBC 4.53 Hgb 14.5 Hct 41.9 MCV 92.6 MCH 32.0 MCHC 34.6 RDW 14.2 Plt Count 155 MPV 8.8 Neut % (Auto) 62.8 Lymph % (Auto) 20.6 [place] % (Auto) 11.8 H Eos % (Auto) 4.3 H Baso % (Auto) 0.5 Neut # (Auto) 6.1 Lymph # (Auto) 2.0 [place] # (Auto) 1.2 H Eos # (Auto) 0.4 Baso # (Auto) 0.0 WBC Differential . Differential Comment Auto diff final Hematology Comments Plt Funct P2Y12 Units Sodium Potassium Chloride Carbon Dioxide Anion Gap BUN Creatinine Estimated GFR POC Glucose Random Glucose Calcium Total Creatine Kinase Triglycerides Cholesterol LDL Cholesterol, Calc HDL Cholesterol Cholesterol/HDL Ratio Discharge Plan - Discharge Order Discharge Orders: Discharge Order (Routine); Ordered 02/09/18 Ordered By: Hamilton Isaac - Discharge Details Anticipated Discharge Date: 02/09/18 - Physicians Team Primary Care Provider: Davion Farley Attending Provider: Amilcar Brewster - Rxs /Orders / Referrals /Forms Prescriptions: New acetaminophen 325 mg Tablet 325 mg PO Q4H PRN (Reason: Pain Scale 1 To 2) RF: 0 aspirin 81 mg Tablet,Chewable 81 mg PO DAILY RF: 0 clopidogrel [Plavix] 75 mg Tablet 75 mg PO DAILY Qty: 30 RF: 6 gabapentin [Neurontin] 300 mg Capsule 300 mg PO DAILY RF: 0 Continue atorvastatin 20 mg Tablet 20 mg PO DAILY cyanocobalamin (vitamin B-12) [Vitamin B-12] 1,000 mcg Tablet 1,000 mcg PO DAILY gabapentin 300 mg Capsule 300 mg PO DAILY glimepiride 4 mg Tablet 4 mg PO QAM hydrochlorothiazide 25 mg Tablet 25 mg PO DAILY levothyroxine 88 mcg Tablet 88 mcg PO DAILY linagliptin [Tradjenta] 5 mg Tablet 5 mg PO DAILY lisinopril 20 mg Tablet 20 mg PO DAILY metformin 1,000 mg Tablet 1,000 mg PO BID metoprolol tartrate 50 mg Tablet 50 mg PO BID nortriptyline 10 mg Capsule 10 mg PO HS pioglitazone 15 mg Tablet 15 mg PO DAILY polyethylene glycol 3350 [Miralax] 17 gram Powder In Packet 17 g PO DAILY No Action aspirin [Aspirin Low Dose] 81 mg Tablet,Delayed Release (Dr/Ec) 81 mg PO DAILY Referrals: Davion Farley MD [Primary Care Provider] - See Instructions
[2018-02-09] MEDS ORDERED: Gabapentin 300 MG Capsule PO SCH (09:00)
[2018-02-09] MEDS ORDERED: Lisinopril 20 MG Tablet PO SCH (09:00)
== END 2018-02-09 10:16 | disposition home or self-care (01) ==
LOC: HDOC 06:10 → HDIC 06:13 → HCIN 11:30 → HCVI 11:45 → HCIN 22:37 → HDOC 02-09 10:15
PROVIDERS: ADMIT Internal Medicine; ATTEND Internal Medicine
DX: I12.9 Hypertensive chronic kidney disease with stage 1 through stage 4 chronic kidney disease, or unspecified chronic kidney disease; E78.5 Hyperlipidemia, unspecified; I25.110 Atherosclerotic heart disease of native coronary artery with unstable angina pectoris; Z79.84 Long term (current) use of oral hypoglycemic drugs; E03.9 Hypothyroidism, unspecified; N52.1 Erectile dysfunction due to diseases classified elsewhere; Z87.891 Personal history of nicotine dependence; E11.22 Type 2 diabetes mellitus with diabetic chronic kidney disease; N18.3 Chronic kidney disease, stage 3 (moderate); E11.69 Type 2 diabetes mellitus with other specified complication; E11.21 Type 2 diabetes mellitus with diabetic nephropathy; E11.40 Type 2 diabetes mellitus with diabetic neuropathy, unspecified; Z86.010 Personal history of colon polyps; Z95.1 Presence of aortocoronary bypass graft